=== PATIENT | male | born 1960 | race Caucasian/White ===

== ENCOUNTER 2018-02-05 15:34 | Emergency (ER) | payer OTHER ==
[~2018-02-05] VITALS: Ht 167.6 cm; Wt 68.0 kg
--- NOTE | 2018-02-05 18:57 | ED GENERAL ADULT ---
See Addendum History of Present Illness General Chief Complaint: ETOH/Drug Related Complaint Stated Complaint: PT WAS SIB BY [facility] FOR ALCOHOL DETOX Source: patient, family, friend Exam Limitations: no limitations Vital Signs & Intake/Output Vital Signs & Intake/Output Vital Signs Date Time Temp Pulse Resp B/P B/P Pulse O2 O2 Flow FiO2 Mean Ox Delivery Rate 02/05 1855 98.3 100 18 122/73 94 Room Air 02/05 1752 98.9 105 18 149/96 97 Room Air 02/05 1618 Room Air 02/05 1543 95.9 111 15 109/78 96 Room Air Room Air Allergies Coded Allergies: No Known Allergies (02/05/18) Triage Note: PT TO ED FOR ETOH DETOX AND HIGH WATCH CLEARANCE. PT REPORTS HE NORMALLY DRINKS APPROX 2-3 PINTS OF VODKA A DAY. LAST DRINK WAS AROUND 1000 THIS MORNING. HAS DETOXED BEFORE AT [facility] AND HAD A SEIZURE (MANY YEARS AGO). DENIES DRUG USE/SI/HI. UNABLE TO SIT DOWN IN TRIAGE DUE TO CHRONIC LOWER BACK PAIN. Triage Nurses Notes Reviewed? yes HPI: Patient is a 57-year-old male with a long past medical history of alcoholism who presents today requesting detox at [facility]. He reportedly drinks 1-2 L of vodka per day, and did drink earlier today. Upon my initial encounter he is not significantly clinically intoxicated. Currently he is expressing no significant withdrawal symptoms. Past History Travel History Traveled to [place] past 21 day No Medical History Any Pertinent Medical History? see below for history Neurological: DETOX SEIZURE X 1. EENT: NONE Cardiovascular: NONE Respiratory: NONE Gastrointestinal: NONE Hepatic: NONE Renal: NONE Musculoskeletal: CHRONIC BACK PAIN Psychiatric: ETOH Endocrine: NONE Blood Disorders: NONE Cancer(s): NONE Surgical History Surgical History: non-contributory Psychosocial History What is your primary language Turkish Tobacco Use: Current Daily Use Daily Tobacco Use Amount/Type: => 5 Cigarettes daily ETOH Use: alcoholic Illicit Drug Use: denies illicit drug use Family History Hx Contributory? No Review of Systems Review of Systems Constitutional: Reports: see HPI. EENTM: Reports: no symptoms. Respiratory: Reports: no symptoms. Cardiovascular: Reports: no symptoms. GI: Reports: no symptoms. Genitourinary: Reports: no symptoms. Musculoskeletal: Reports: no symptoms. Skin: Reports: no symptoms. Neurological/Psychological: Reports: see HPI, emotional problems. Hematologic/Endocrine: Reports: no symptoms. Immunologic/Allergic: Reports: no symptoms. All Other Systems: Reviewed and Negative Physical Exam Physical Exam General Appearance: no apparent distress, alert, awake, comfortable Comments: HEENT: Inspection of the head reveals a normocephalic cranium with no signs of trauma. Ophtho: Extraocular muscles are intact. The sclera are noninjected, and there is no obvious discharge. Neck: No signs of trauma or asymmetry to the neck. Respiratory: The patient exhibits no signs of labored breathing. Cardiac: Non-tachycardic. GI: No gross abdominal distention. : Deferred Neuro: Non-tremulous. The patient is oriented to person, place, time, and situation, with no obvious focal motor deficits. Cranial nerves II through XII are intact, and gait is normal. Behavioral: Calm and cooperative. Motivated for detox, denies suicidality or other psychiatric concerns at present. Dermatologic: Dermatologic examination reveals no obvious rashes or exanthems. Core Measures ACS in differential dx? No CVA/TIA Diagnosis: No Sepsis Present: No Sepsis Focused Exam Completed? No Progress Differential Diagnoses I considered the following diagnoses in my evaluation of the patient: Alcoholism , polysubstance abuse, alcohol withdrawal Plan of Care: Orders Procedure Date/time Status Regular Diet 02/06 B Active CIWA 02/05 1710 Active MAGNESIUM 02/05 1710 Active ETHANOL 02/05 1701 Active COMPREHENSIVE METABOLIC PANEL 02/05 1701 Active CBC WITHOUT DIFFERENTIAL 02/05 170 Active Current Medications Sig/Asa Start time Last Medication Dose Stop Time Status Admin Clonidine 0.1 MG FOUR TIMES A DAY 02/05 1800 UNVr (Catapres) Hydroxyzine HCl 25 MG AT BEDTIME NEED.. 02/05 1715 UNVr (Atarax) Gabapentin 300 MG Q8 02/05 1708 UNVr (Neurontin) Initial ED EKG: none Hand-Off Endorsed To: Bogdan Olson MD Comments: Laboratory studies pending. Patient to undergo CIWA protocol overnight and hopeful floor high watch transfer tomorrow. Care transitioned to Dr. Olson overnight. Departure Departure Time of Disposition: 1855 Disposition: STILL A PATIENT Condition: Stable Clinical Impression Primary Impression: Alcohol dependence Qualifiers: Substance use status: with intoxication Complication of substance- induced condition: uncomplicated Qualified Code: F10.220 - Alcohol dependence with intoxication, uncomplicated Referrals: Patient Has No Primary Care Dr (PCP/Family) Departure Forms: Customer Survey General Discharge Information Critical Care Note Critical Care Note Critical Care Time: non-applicable
[2018-02-05 19:17] LABS: ABSOLUTE BASOPHIL COUNT 0 /CUMM (0.0-0.2); ABSOLUTE EOSINOPHIL COUNT 0 /CUMM (0.0-0.7); ABSOLUTE GRANULOCYTE CT 3.8 /CUMM (1.4-6.5); ABSOLUTE LYMPH COUNT 1.1 /CUMM (1.2-3.4); ABSOLUTE MONOCYTE COUNT 0.8 /CUMM (0.10-0.60); BASOPHIL % 0.4 % (0.0-2.0); EOSINOPHIL % 0.5 % (0-5); GRANULOCYTE % 66.1 % (42.2-75.2); MEAN CORPUSCULAR HGB 35.1 PG (27.0-31.0); MEAN CORPUSCULAR HGB CONC 34.1 G/DL (33.0-37.0); MEAN CORPUSCULAR VOLUME 102.8 FL (80.0-94.0); MEAN PLATELET VOLUME 7.5 FL (7.4-10.4); PLATELET COUNT 184 /CUMM (130-400); WHITE BLOOD CELL COUNT 5.8 /CUMM (4.8-10.8)
[2018-02-06 14:19] VITALS: BP 140/92
== END 2018-02-06 14:36 ==
LOC: ERH 15:34
PROVIDERS: Student in an Organized Health Care Education/Training Program
DX: F10.20 Alcohol dependence, uncomplicated (principal)
CPT/HCPCS: 80307; G0480

== ENCOUNTER 2018-02-06 19:36 | Inpatient (IN) | payer OTHER ==
[~2018-02-06] VITALS: Ht 167.6 cm; Wt 73.5 kg
--- NOTE | 2018-02-06 21:21 | ED GENERAL ADULT ---
History of Present Illness General Chief Complaint: Fall Stated Complaint: SIB BY HIGHWATCH FOR FALL Source: patient, family, old records Exam Limitations: no limitations Vital Signs & Intake/Output Vital Signs & Intake/Output Vital Signs Date Time Temp Pulse Resp B/P B/P Pulse O2 O2 Flow FiO2 Mean Ox Delivery Rate 02/07 0215 98.7 102 18 132/80 96 Room Air 02/07 0200 98.7 102 18 132/80 02/07 0028 98.9 96 18 122/77 / 0019 98.9 96 18 122/77 98 / 2205 99.0 103 18 121/77 / 2205 99.0 103 18 121/77 97 06/07 2030 Room Air 02/06 1950 97.0 101 139/84 ED Intake and Output 02/07 0000 02/06 1200 Intake Total 0 Output Total 0 Balance 0 Intake, Oral 0 Output, Urine 0 Patient 155 lb Weight Allergies Coded Allergies: No Known Allergies (02/05/18) Reconcile Medications No Known Home Medications Triage Note: PER PT HERE FOR 2 DAYS THEN THIS AM SENT TO [facility] REPORTS OFF BALANCE UNABLE TO WALK SO SENT BACK TO ED Triage Nurses Notes Reviewed? yes Onset: Just prior to arrival Duration: hour(s):, constant, continues in ED, getting worse Timing: recent history Injury Environment: [facility] Severity: severe Modifying Factors: Improves With: rest. Worsens With: movement. HPI: The patient was sent to [facility] for alcohol detox. He was found to have unsteady gait and confusion when he arrived. He fell but does not recall any injury loss of consciousness. He denies fever chills nausea vomiting diarrhea abdominal pain chest pain shortness breath headache dysuria rash bleeding. Past History Travel History Traveled to [place] past 21 day No Medical History Any Pertinent Medical History? see below for history Neurological: DETOX SEIZURE X 1. EENT: NONE Cardiovascular: NONE Respiratory: NONE Gastrointestinal: NONE Hepatic: NONE Renal: NONE Musculoskeletal: CHRONIC BACK PAIN Psychiatric: ETOH Endocrine: NONE Blood Disorders: NONE Cancer(s): NONE Surgical History Surgical History: non-contributory Psychosocial History What is your primary language Slovak Tobacco Use: Current Daily Use Daily Tobacco Use Amount/Type: => 5 Cigarettes daily ETOH Use: heavy use Family History Hx Contributory? No Review of Systems Review of Systems Constitutional: Reports: no symptoms. EENTM: Reports: no symptoms. Respiratory: Reports: no symptoms. Cardiovascular: Reports: no symptoms. GI: Reports: no symptoms. Genitourinary: Reports: no symptoms. Musculoskeletal: Reports: no symptoms. Skin: Reports: no symptoms. Neurological/Psychological: Reports: see HPI, cognitive dysfunction, confusion, weakness, other (Ataxic gait ). Hematologic/Endocrine: Reports: no symptoms. Immunologic/Allergic: Reports: no symptoms. All Other Systems: Reviewed and Negative Physical Exam Physical Exam General Appearance: well developed/nourished, alert, awake, anxious, moderate distress Head: atraumatic, normal appearance Eyes: Bilateral: normal appearance, PERRL, EOMI. Ears, Nose, Throat: normal pharynx, normal ENT inspection, hearing grossly normal Neck: normal inspection, supple, full range of motion, no midline tenderness Respiratory: normal breath sounds, chest non-tender, no respiratory distress, quiet respiration, lungs clear Cardiovascular: regular rate/rhythm, normal peripheral pulses, norml femoral pulses equa Peripheral Pulses: 4+ carotid (R), 4+ carotid (L) Gastrointestinal: normal bowel sounds, soft, non-tender Back: normal inspection, normal range of motion, no vertebral tenderness Extremities: normal inspection, normal capillary refill, normal range of motion, no edema Neurologic/Psych: no motor/sensory deficits, awake, alert, oriented x 3, normal mood/affect, 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 Skin: intact, normal color, warm/dry Lymphatic: no anterior cervical jamaal Core Measures ACS in differential dx? No CVA/TIA Diagnosis: No Sepsis Present: No Sepsis Focused Exam Completed? No Progress Differential Diagnoses I considered the following diagnoses in my evaluation of the patient: Alcohol withdrawal alcohol intoxication and adverse medication reaction electrolyte abnormality Plan of Care: Orders Procedure Date/time Status Regular Diet 02/07 B Active Seizure Precautions 02/07 313 Active Weight 02/08 224 Complete Vital Signs 02/08 224 Active Teach/Educate 02/08 224 Active Pain Treatment and Response 02/08 224 Active Nutritional Intake, Monitor 02/08 224 Active Isolation 02/08 224 Active Intake & Output 02/08 224 Active Patient Care Conference 02/08 224 Active Activity/Ambulation 02/08 224 Active Pathway - chart 06/08 0214 Active House Staff 02/07 0214 Active Code Status 02/07 0214 Active Add-on Test (ER Only) 02/07 0058 Active Patient Data 02/07 0042 Active Lab Add-on Test 02/07 UNK Active VTE Mechanical Prophylaxis 02/07 UNK Active Precautions 02/07 UNK Active TSH REFLEX 02/06 2200 Complete TOTAL TRIODOTHYROXINE 02/06 2200 Complete PHOSPHORUS 02/06 2200 Complete MAGNESIUM 02/06 2200 Complete FREE T4 02/06 2200 Complete FOLIC ACID 02/06 2200 Complete VITAMIN B12 02/06 2200 Complete OXYGEN SETUP (GEN) 02/07 2120 Active Saline Lock 02/07 2120 Active Admit to inpatient 02/07 2120 Active Vital Signs 02/07 2120 Active Activity/Ambulation 02/07 2120 Active Code Status 02/07 2120 Complete CIWA 02/06 2111 Active URINALYSIS 02/06 2111 Complete AMMONIA 02/06 2111 Complete ETHANOL 02/06 2109 Complete COMPREHENSIVE METABOLIC PANEL 02/06 2109 Complete CBC WITHOUT DIFFERENTIAL 02/06 2109 Complete EKG 02/06 2109 Active Intake & Output 02/06 2029 Active Current Medications Sig/Asa Start time Last Medication Dose Stop Time Status Admin Thiamine HCl 50 MG DAILY 02/14 09 UNVr (Vitamin B1) Thiamine HCl 250 MG DAILY 02/09 09 UNVr (Vitamin B-1) 02/13 1001 Sodium Chloride 50 ML (Normal Saline 50ML Bag) Heparin Sodium 5,000 UNIT Q8 02/07 0600 AC (Porcine) Lorazepam 2 MG Q6 02/07 06 AC (Ativan) Thiamine HCl 500 MG TID 02/07 0349 UNVr (Vitamin B-1) 02/08 1504 Sodium Chloride 50 ML (Normal Saline 50ML Bag) Folic Acid 1 MG DAILY 02/07 0230 AC (Folic Acid) Multivitamins 1 TAB DAILY 02/07 0230 AC (Theragran Vitamins) Lorazepam 0 Q1P PRN 02/07 0215 AC (Ativan) Cyanocobalamin/ 1 BAG ONCE ONE 02/06 2130 AC 02/06 Thiamine/Pyridoxine 02/07 0529 2326 (Vitamin in I.V.) Dextrose/Water 1,000 ML (D5W 1000) Lorazepam 1 MG Q2 PRN 02/06 2130 AC (Ativan) Lorazepam 2 MG Q2P PRN 02/06 2130 AC (Ativan) Laboratory Tests 02/07/18 0127: Urinalysis LIGHT H, Urine Color YEL, Urine Clarity CLEAR, Urine pH 7.5, Ur Specific [place] 1.010, Urine Protein NEG, Urine Ketones 15 H, Urine Nitrite NEG, Urine Bilirubin NEG, Urine Urobilinogen 1.0, Ur Leukocyte Esterase TRACE H , Ur Microscopic SEDIMENT EXAMINED, Urine RBC 1-3, Urine Crystals RARE UR AC, Urine Hemoglobin TRACE-INTACT H, Urine Glucose NEG 02/06/182199: Ammonia < 9 L 02/06/182199: Anion Gap 10, Estimated GFR > 60, BUN/Creatinine Ratio 18.3, Glucose 98, Calcium 9.5, Phosphorus 3.8, Magnesium 1.9, Total Bilirubin 1.2, AST 121 H, ALT 117 H, Alkaline Phosphatase 82, Total Protein 7.0, Albumin 4.2, Globulin 2.8, Albumin/ Globulin Ratio 1.5, Vitamin B12 718, Folate 5.8, Free T4 0.71, Total T3 1.29, TSH &T3 &Free T4 Intrp 4.580 H, CBC w Diff NO MAN DIFF REQ, RBC 3.38 L, MCV 102.0 H, MCH 35.4 H, MCHC 34.8, RDW 14.7 H, MPV 7.4, Gran % 68.3, Lymphocytes % 15.4 L, Monocytes % 14.2 H, Eosinophils % 1.7, Basophils % 0.4, Absolute Granulocytes 4.6, Absolute Lymphocytes 1.0 L, Absolute Monocytes 1.0 H, Absolute Eosinophils 0.1, Absolute Basophils 0, Serum Alcohol < 10.0 Diagnostic Imaging: Viewed by Me: CT Scan. Discussed w/RAD: CT Scan. Radiology Impression: No acute intracranial abnormality. Chronic small vessel ischemic disease of the periventricular white matter. No facial bone fracture. Initial ED EKG: normal axis, normal intervals, normal p-waves, normal QRS complex, normal sinus rhythm, no ST T wave changes Rhythm Strip: normal sinus rhythm Departure Departure Time of Disposition: 2119 Disposition: STILL A PATIENT Condition: Stable Clinical Impression Primary Impression: Alcohol withdrawal syndrome with perceptual disturbance Secondary Impressions: Ataxia Referrals: Patient Has No Primary Care Dr (PCP/Family) Departure Forms: Customer Survey General Discharge Information Prescriptions: Current Visit Scripts No Known Home Medications Alcohol Withdrawl Admission ED Alcohol Detox Admission d/t: Acute MedCond D/T Alcohol Critical Care Note Critical Care Note Critical Care Time: non-applicable
[2018-02-06 22:05] VITALS: BP 121/77
[2018-02-06 22:09] LABS: ABSOLUTE BASOPHIL COUNT 0 /CUMM (0.0-0.2); ABSOLUTE EOSINOPHIL COUNT 0.1 /CUMM (0.0-0.7); ABSOLUTE GRANULOCYTE CT 4.6 /CUMM (1.4-6.5); BASOPHIL % 0.4 % (0.0-2.0); EOSINOPHIL % 1.7 % (0-5); GRANULOCYTE % 68.3 % (42.2-75.2); HEMATOCRIT 34.4 % (42-52); MEAN CORPUSCULAR HGB 35.4 PG (27.0-31.0); MEAN CORPUSCULAR HGB CONC 34.8 G/DL (33.0-37.0); MEAN PLATELET VOLUME 7.4 FL (7.4-10.4); PLATELET COUNT 198 /CUMM (130-400); RBC DISTRIBUTION WIDTH 14.7 % (11.5-14.5); RED BLOOD CELL CT 3.38 /CUMM (4.70-6.10); WHITE BLOOD CELL COUNT 6.7 /CUMM (4.8-10.8)
--- NOTE | 2018-02-06 23:05 | CT SCAN REPORT ---
EXAMINATION: CT HEAD WITHOUT CONTRAST. CT FACIAL BONE WITHOUT CONTRAST. CLINICAL INFORMATION: Fall with facial trauma COMPARISON: None TECHNIQUE: A noncontrast CT of the head and a noncontrast CT of the facial bones is performed with sagittal and coronal reformats. DLP: [id number] FINDINGS: No intra-axial or extra-axial hemorrhage. No acute territorial infarct. There is a chronic lacunar infarct in the left basal ganglia external capsule. Chronic small vessel ischemic disease of the periventricular white matter with atrophy and mild prominence of the ventricles and sulci. Preservation of martel-white matter differentiation. No mass, mass effect, or midline shift. No fracture. The mastoid air cells and visualized paranasal sinuses are clear. There is no facial bone fracture. Globes and orbits appear normal. IMPRESSION: No acute intracranial abnormality. Chronic small vessel ischemic disease of the periventricular white matter. No facial bone fracture.
[2018-02-07] VITALS (9 sets, daily range): BP systolic 122–153; BP diastolic 77–99
--- NOTE | 2018-02-07 01:00 | History & Physical ---
Jl WILLETT,Waldo 02/07/18 0100: General Information and HPI MD Statement: I have seen and personally examined JUAN A CORONA and documented this H&P. The patient is a 57 year old M who presented with a patient stated chief complaint of [alcohol withdrawal]. Source of Information: patient, old records Exam Limitations: no limitations History of Present Illness: Patient is a 57-year-old male with a PMH significant for alcohol use disorder, alcohol withdrawal seizure and ICU admission, multiple attempts of detoxification and abstinence with relapses, who presents with ataxia and alcohol withdrawal from [facility]. Patient is going to be going to [facility] for alcohol detoxification however he had noted ataxia was brought to the ED. Patient drinks 2 pints of vodka per day since March 2017, prior to this reports being sober for 1-1/2 years. Patient's last drink was on 02/05/18. Patient reports a fall and loss of consciousness on 02/05/18 without head strike. Patient reports numerous falls over the past year while he was intoxicated but denies any gait instability when he is sober. Patient endorses mild anxiety and gait instability. Patient denies any weakness, numbness, tingling, chest pain, palpitations, lightheadedness, dizziness, suicidal ideation, homicidal ideation, audio or visual hallucinations. Allergies/Medications Allergies: Coded Allergies: No Known Allergies (02/05/18) Home Med list No Known Home Medications Past History Travel History Traveled to [place] past 21 day No Medical History Neurological: DETOX SEIZURE X 1. EENT: NONE Cardiovascular: NONE Respiratory: NONE Gastrointestinal: NONE Hepatic: NONE Renal: NONE Musculoskeletal: CHRONIC BACK PAIN Psychiatric: ETOH Endocrine: NONE Blood Disorders: NONE Cancer(s): NONE Surgical History Surgical History: non-contributory Past Family/Social History Family History Relations & Conditions if any FATHER FH: Parkinson's disease, Onset: 60+. MOTHER FH: alcohol abuse Psychosocial History Where do you live? Home Who Do You Live With? self Services at Home: None Primary Language: Italian Smoking Status: Current Everyday Smoker ETOH Use: heavy use Illicit Drug Use: denies illicit drug use Functional Ability ADLs Independent: dressing, eating, toileting, bathing. Ambulation: independent IADLs Independent: shopping, housework, finances, food prep, telephone, transportation , medication admin. Review of Systems Review of Systems Constitutional: Denies: chills, fever. Cardiovascular: Reports: see HPI, syncope. Denies: chest pain, palpitations. GI: Denies: abdominal pain, melena, nausea. Genitourinary: Denies: dysuria, frequency, hematuria. Musculoskeletal: Reports: no symptoms. Skin: Reports: no symptoms. Neurological/Psychological: Reports: ataxia. Exam & Diagnostic Data Last 24 Hrs of Vital Signs/I&O Vital Signs Date Time Temp Pulse Resp B/P B/P Pulse O2 O2 Flow FiO2 Mean Ox Delivery Rate 02/07 0028 98.9 96 18 122/77 02/07 0019 98.9 96 18 122/77 98 02/06 2205 99.0 103 18 121/77 02/06 2205 99.0 103 18 121/77 97 02/06 2030 Room Air 02/06 1950 97.0 101 139/84 Intake & Output 02/07 0800 02/07 0000 02/06 1600 Intake Total 0 Output Total 0 Balance 0 Intake, Oral 0 Output, Urine 0 Patient 155 lb Weight Physical Exam General Appearance Alert, Oriented X3, Cooperative, No Acute Distress Skin numerous ecchymoses on the back of different ages, abrasion on the L knee Skin Temp/Moisture Exam: Warm/Dry Cardiovascular Normal S1, Normal S2, tachycardic, HR 100s Lungs Clear to Auscultation, Normal Air Movement Abdomen Normal Bowel Sounds, Soft, No Tenderness, small umbilical hernia Neurological ataxic gait, tremulous, no clonus, saccadic dysmetria on eye exam ( eye over shoots when asked to track from lateral to midline and then corrects) ) Last 24 Hrs of Labs/Singh: Laboratory Tests 02/07/18 0127: Urine Color Pending, Urine Clarity Pending, Urine pH Pending, Ur Specific Al[place] Pending, Urine Protein Pending, Urine Ketones Pending, Urine Nitrite Pending, Urine Bilirubin Pending, Urine Urobilinogen Pending, Ur Leukocyte Esterase Pending, Ur Microscopic Pending, Urine Hemoglobin Pending, Urine Glucose Pending 02/06/18 2200: Ammonia < 9 L 02/06/182199: Anion Gap 10, Estimated GFR > 60, BUN/Creatinine Ratio 18.3, Glucose 98, Calcium 9.5, Phosphorus 3.8, Magnesium 1.9, Total Bilirubin 1.2, AST 121 H, ALT 117 H, Alkaline Phosphatase 82, Total Protein 7.0, Albumin 4.2, Globulin 2.8, Albumin/ Globulin Ratio 1.5, Free T4 0.71, Total T3 1.29, TSH &T3 &Free T4 Intrp 4.580 H , CBC w Diff NO MAN DIFF REQ, RBC 3.38 L, MCV 102.0 H, MCH 35.4 H, MCHC 34.8, RDW 14.7 H, MPV 7.4, Gran % 68.3, Lymphocytes % 15.4 L, Monocytes % 14.2 H, Eosinophils % 1.7, Basophils % 0.4, Absolute Granulocytes 4.6, Absolute Lymphocytes 1.0 L, Absolute Monocytes 1.0 H, Absolute Eosinophils 0.1, Absolute Basophils 0, Serum Alcohol < 10.0 Diagnostic Data CXR Results head CT/ Maxillofacial CT No intra-axial or extra-axial hemorrhage. No acute territorial infarct. There is a chronic lacunar infarct in the left basal ganglia external capsule. Chronic small vessel ischemic disease of the periventricular white matter with atrophy and mild prominence of the ventricles and sulci. Preservation of martel-white matter differentiation. No mass, mass effect, or midline shift. No fracture. The mastoid air cells and visualized paranasal sinuses are clear. There is no facial bone fracture. Globes and orbits appear normal. IMPRESSION: No acute intracranial abnormality. Chronic small vessel ischemic disease of the periventricular white matter. No facial bone fracture. Assessment/Plan Assessment: Patient is a 57-year-old male with a PMH significant for alcohol use disorder, alcohol withdrawal seizure and ICU admission, multiple attempts of detoxification and abstinence with relapses, who presents with ataxia and alcohol withdrawal from [facility]. Patient is going to be going to [facility] for alcohol detoxification however he had noted ataxia was brought to the ED. last drink was on 02/05/18. Vital signs on admission: T 97, P101, RR 18, BP 139/84, pulse ox 97% on room air Labs: WBC 6.7, H 12.0/34.4, platelets 198, MCV 102, sodium 137, potassium 3.9, chloride 95, CO2 32, BUN 11, creatinine 0.6, glucose 98, AST 121, ALT 117, ammonia <9, serum alcohol <10, UA shows hemoglobinuria Problem list #Alcohol withdrawal #Ataxia and saccadic dysmetria, differentials include alcohol withdrawal, Warneke's encephalopathy, cerebellar pathology #Macrocytic anemia #Transaminitis Plan -Admit to general medicine floor -IV Ativan per [facility] protocol, scheduled p.o. Ativan 2 mg every 6 hours -IV thiamine repletion -Banana bag 1, then oral multivitamin, folic acid -PT evaluation and treatment -Fall precautions -Patient refusing psych consult at this time -Social work consult -Monitor LFTs -Smoking cessation counseling -Consider neurologic consult if patient's ataxia does not improve with IV repletion and alcohol detoxification Diet: Regular diet DVT prophylaxis: Lovenox, Alps CODE STATUS: Full code As Ranked By This Provider Problem List: 1. Ataxia 2. Alcohol dependence 3. Alcohol withdrawal Core Measures/Misc (05/19) Acute Coronary Syndrome ACS Diagnosis: No Congestive Heart Failure Congestive Heart Failure Diagnosis No Cerebrovascular Accident CVA/TIA Diagnosis: No VTE (View Protocol) VTE Risk Factors Age>40 No Mechanical VTE Prophylaxis d/t N/A MechProphylax Ordered No VTE Pharm Prophylaxis d/t NA PharmProphylax ordered Sepsis (View protocol) Sepsis Present: No If YES complete Sepsis Event Note If YES complete Sepsis Event Note Donavan WILLETT, [facility] 02/07/18 0224: Core Measures/Misc (05/19) Sepsis (View protocol) If YES complete Sepsis Event Note If YES complete Sepsis Event Note Attending MD Review Statement Attending Statement Attending MD Statement: examined this patient, discuss w/resident/PA/ELECTROENCEPHALOGRAPHIC TECHNICIAN, agreed w/resident/PA/ELECTROENCEPHALOGRAPHIC TECHNICIAN, reviewed images, amended to note Attending Assessment/Plan: 57 yo M smoker with h/o alcohol abuse who was seen in the ER 2 days prior requesting alcohol detox and was discharged to [facility] this morning for further management. However, once he was at [facility], on initial evaluation he was noted to be tremulous with an unsteady gait, so he was sent back to ER. Patient has a h/o alcohol withdrawal seizure (2016) for which he was admitted to [facility] ICU. He has been through multiple detoxes including twice at [facility]). He drinks 1-2 pints of Vodka daily, last drink was 48 hours prior. He denies SI or HI. He has been having a gait imbalance for the past 2 years and most recently had has multiple falls. He denies chest pain, palpitations, dyspnea, nausea/ vomiting, hematemesis or abdominal pain. He occasionally takes pseudophed for allergies but denies any major medical problems. Vitals stable except for tachycardia. Exam: AAO x 3, saccadic eye movements noted, tremulous, gait unsteady, unable to assess Romberg's, power 5/5, sensation intact. Multiple bruises noted to the upper and lower back. Chest clear, Heart S1S2 regular, tachycardic, Abd soft, NT, LE: no edema. Labs: macrocytic anemia H/H 12/34.4, Plt 198, bicarb 32, AST 121, ALT 117, ammonia <9, UA negative. Alcohol <10. Utox (02/06): negative. EKG: sinus tachycardia, Qtc 483. CT head/ maxillofacial: no acute abnormality. Chronic small vessel ischemic disease of periventricular white matter. No facial bone fracture. Assessment and plan: 1. Alcohol withdrawal 2. Gait ataxia, saccadic eye movements (no nystagmus) without ongoing confusion 3. CT head s/o small vessel ischemic disease - subacute or old stroke is a possibility 4. History of withdrawal seizure 5. Macrocytic anemia 6. Transaminitis 2/2 alcohol use - Admit to General medicine - Neurochecks Q2 - CIWA protocol - IV ativan per CIWA - PO Ativan 2 mg Q6 - IV thiamine high dose for 7 days - PT eval - Low threshold for ICU transfer - Banana bag x1 - Trend LFTs - Check TSH, Free T4, B12 and folic acid - Social work consult/ Case management consult - Patient does not wish to see a psychiatrist at this point. He prefers to see the psychiatrist at [facility]. - Smoking cessation counseling, nicotine patch - Consider ?stroke work up ?MRI DVT ppx Lovenox. Full code. Oli WILLETT,Ismail 02/07/18 0402: Core Measures/Misc (05/19) Sepsis (View protocol) If YES complete Sepsis Event Note If YES complete Sepsis Event Note Resident Review Statement Resident Statement: examined this patient, discussed with rn intern, agreed with rn intern Other Findings: 57/M with PMHx significant for multiple hospital admission for alcohol detox with last one being 2 year ago that required ICU admission and was complicated by seizure, presented by his brother for alcohol detox. The patient was sober since last detox until one year ago when he started drinking again. He reports drinking 2 pints of vodka every day for the past year. His last drink was last Saturday morning. He had multiple falls for which his brother decided to bring him for alcohol detox. He was observed in the ED for [facility] 24 hour then he was sent to [facility]. There was a concern about imbalance with ambulation for which she was sent back to the ED. Currently he feels anxious and reports having tremors but denies any other active complaints. The patient has no other significant past medical history, he is not taking any medication at home. Physical Exam: HEENT: dry mouth, eye is showing saccadic dysmetria (overshooting and follow the finger) CVS: Nl S1/S2, without MRGs RESP: CTA without additional sounds GI: soft, ND/NT, + BS Neuro: A&Ox3, motor 5/5 x4, intact sensatino x4, CN intact 2-12, eye dysmetria, normal speech, mild abnormal nose to finger test, negative Romberg test. Back: multiple different ages bruises from falls Ext: No edema, hand tremor Labs were significant for transaminitis that's improved since Saturday, and microcytic anemia. Breast flaps were insignificant. Assessment: The patient had multiple admission for alcohol detox. Eye exam is showing dysmetria, back multiple bruises that seem to happen at different times becaue of falls (Ataxia?), and intermittent AMS. his symptoms possible just 2/2 alcohol withdrawal that possible complicated by Wernicke encephalopathy. He has no headache or focal neurological sign, however we will consider cerebellum pathologies if symptoms did not improve. Plan #Alcohol detox: * Admit to general med floor * Ativan as per CIWA * Scheduled to milligram of oral Ativan every 6 * Oral folic acid and multivitamin * IV thiamine * Fall precaution, PT eval #Saccadic dysmetria, imbalance gait(ataxia?), and one episode of confusion ( Wernicke encephalopathy) * Start with 500 mg IV thiamine 3 times a day for 2 days * Followed by 250mg IV thiamine for 5 days * Followed by oral 50 mg thiamine daily * If the patient did not improve, consider cerebellum pathologies. (MRA) #Transaminitis * Improved since Saturday, most likely alcohol related * Repeat LFTs prior to discharge -Regular diet -DVT PPx: ALPS and hep SC -FC
--- NOTE | 2018-02-07 02:25 | Admission Certification ---
Admission Certification Certification Statement - As attending physician, I certify that at the time of - admission, based on clinical presentation, severity of - symptoms, need for further diagnostic testing and - therapeutic interventions, and risk of adverse outcomes - without in-hospital treatment, in my clinical assessment, - this patient requires an acute hospital stay for a minimum - of two nights or longer. I have also considered psychsocial - factors such as support system, advanced age, financial - issues, cognitive issues, and failed out-patient treatments, - past re-admission history, safety of patient, and lack of - compliance as applicable. Specific rationale supporting this admission is: Alcohol withdrawal.
--- NOTE | 2018-02-07 10:40 | Event Note ---
See Addendum Event Note Event Note: S: seen and examined pt this morning, complains about being lighthead. O: appears tremulous, Saccadic eye movements noted, continues to be ataxic A/p: 57 yo M smoker with h/o alcohol abuse current admission for alcohol withdrawal, treated for the following issues: Alcohol withdrawal with h/o of withdrawal seizures continue CIWA protocol Gait ataxia, saccadic eye movements posterior cerebellar stroke VS Wernicke's encephalopathy MRI head pending Neurology consulted Macrocytic anemia likely secondary to alcohol use
--- NOTE | 2018-02-07 15:45 | MRI REPORT ---
MR BRAIN WITHOUT IV CONTRAST CLINICAL INFORMATION: Saccadic eye movements/ataxia COMPARISON: Head CT from yesterday. TECHNIQUE: MRI of the brain without contrast was obtained using routine sequences. FINDINGS: There is no hydrocephalus, extra-axial surface collection, or herniation. Mild T2 signal changes within the supratentorial white matter, likely mild chronic microangiopathy. There is global cerebral and cerebellar volume loss. Incidental perivascular space within the inferior left putamen. The major flow voids at the skull base are preserved. There is no acute infarct on diffusion-weighted imaging. There is no intracranial hemorrhage on the gradient recalled echo acquisition. The midline structures are normal. The cerebellar tonsils are normally positioned. The craniocervical junction is normal. Osseous marrow signal intensity is homogenous. The visualized soft tissues are unremarkable. IMPRESSION: No acute intracranial findings. No acute infarcts. Mild T2 signal changes within the supratentorial white matter, likely mild chronic microangiopathy. There is global cerebral and cerebellar volume loss.
--- NOTE | 2018-02-07 16:47 | Cons- Neurology ---
General Information and HPI Consulting Request Date of Consult: 02/07/18 Requested By: Enrico Man MD Reason for Consult: "dancing eyes" Source of Information: patient, old records Exam Limitations: poor historian History of Present Illness: 57/M chronic alcoholic and smoker admitted for alcohol detox prior to transfer to [facility] noted by housestaff to have abnormal eye movements. Patient admits last drink was 2 days ago. Denies blurry vision or oscillopsia. Not aware of any abnormal eye movements but last formal eye exam many years ago. wears over the counter cheaters for farsightedness. No eye pain. Allergies/Medications Allergies: Coded Allergies: No Known Allergies (02/05/18) Home Med List: No Known Home Medications Review of Systems Review of Systems: No specific BELT TURNER complaints, aware of tremor he says occurs with ETOH withdrawal. No headaches. Denies weight loss, cough, SOB, hemoptysis. Remaining elements of the complete medical ROS negative or noncontributory Past History Travel History Traveled to [place] past 21 day No Medical History Blood Transfusion Hx: No Neurological: DETOX SEIZURE X 1. EENT: NONE Cardiovascular: NONE Respiratory: NONE Gastrointestinal: NONE Hepatic: NONE Renal: NONE Musculoskeletal: CHRONIC BACK PAIN Psychiatric: ETOH Endocrine: NONE Blood Disorders: NONE Cancer(s): NONE [employer]/Reproductive: NONE Surgical History Surgical History: appendectomy, BOTH ANKLE SURGERY Family History Relations & Conditions If Any: FATHER FH: Parkinson's disease, Onset: 60+. MOTHER FH: alcohol abuse Psychosocial History Where Do You Live? Home Who Do You Live With? self Services at Home: None Primary Language: Macedonian Smoking Status: Current Everyday Smoker ETOH Use: heavy use Illicit Drug Use: denies illicit drug use Functional Ability ADLs Independent: dressing, eating, toileting, bathing. Ambulation: independent IADLs Independent: shopping, housework, finances, food prep, telephone, transportation , medication admin. Exam & Diagnostic Data Vital Signs and I&O Vital Signs Date Time Temp Pulse Resp B/P B/P Pulse O2 O2 Flow FiO2 Mean Ox Delivery Rate 02/07 1349 98.8 101 18 149/91 96 Room Air 02/07 0653 98.3 98 20 142/97 97 Room Air 02/07 0215 98.7 102 18 132/80 96 Room Air 02/07 0200 98.7 102 18 132/80 02/07 0028 98.9 96 18 122/77 02/07 0019 98.9 96 18 122/77 98 02/06 2205 99.0 103 18 121/77 02/06 2205 99.0 103 18 121/77 97 02/06 2030 Room Air 02/06 1950 97.0 101 139/84 Intake & Output 02/07 1600 02/07 0800 06 0000 Intake Total 1100 1050 0 Output Total 650 1200 0 Balance 450 -150 0 Intake, IV 500 570 Intake, Oral 600 480 0 Number 2 Bowel Movements Output, Urine 650 1200 0 Patient 162 lb 155 lb Weight Weight Bed scale Measurement Method Physical Exam: On exam the patient was lethargic, tremulous. no cardiac murmur. No peripheral edema Mental status: mildly lethargic, stays awake when interviewed, attentive, oriented, no language errors, mild dysarthria , recall impaired EYE MOVEMENTS: MULTIDIRECTIONAL CONJUGATE IRREGULAR EYE JERKING, QUICK = OPSOCLONUS Mild end gaze nystagmus all directions as well Funduscopic unremarkable Visual carlson full, pupils midsize equal round and reactive to light. Facial movement normal bilaterally Facial sensation normal bilaterally Hearing intact bilaterally Uvula elevates midline Tongue protrusion is midline Shoulder shrug symmetric Motor power and tone normal in all 4 extremities Sensation intact to primary modes Tendon reflexes normal and symmetric without pathologic signs Coordination ATAXIA ON NFN, HEEL-IBRAHIM Gait [testing deferred] Last 48 Hours of Lab Results: Laboratory Tests 02/07 02/06 0127 2200 Chemistry Ammonia (9 - 30 umol/L) < 9 L Toxicology Urine Opiates Screen (>2000 NG/ML) < 100 Methadone Screen (>300 NG/ML) < 40 Barbiturate Screen (>200 NG/ML) < 60 Ur Phencyclidine Scrn (>25 NG/ML) < 6.00 Amphetamines Screen (>1000 NG/ML) < 100 U Benzodiazepines Scrn (>200 NG/ML) < 85 Urine Cocaine Screen (>300 NG/ML) < 50 Urine Cannabis Screen (>50 NG/ML) < 5.00 Urines Urinalysis LIGHT H Urine Color (YEL,AMB,STR) YEL Urine Clarity (CLEAR) CLEAR Urine pH (5.0 - 8.0) 7.5 Ur Specific [place]man (1.001 - 1.035) 1.010 Urine Protein (NEG,<30 MG/DL) NEG Urine Ketones (NEG) 15 H Urine Nitrite (NEG) NEG Urine Bilirubin (NEG) NEG Urine Urobilinogen (0.1 - 1.0 EU/dl) 1.0 Ur Leukocyte Esterase (NEG) TRACE H Ur Microscopic SEDIMENT EXAMINED Urine RBC (0 - 5 /HPF) 1-3 Urine Crystals RARE UR AC Urine Hemoglobin (NEG) TRACE-INTACT H Urine Glucose (N MG/DL) NEG 02/06 2200 Chemistry Sodium (137 - 145 mmol/L) 137 Potassium (3.5 - 5.1 mmol/L) 3.9 Chloride (98 - 107 mmol/L) 95 L Carbon Dioxide (22 - 30 mmol/L) 32 H Anion Gap (5 - 16) 10 BUN (9 - 20 mg/dL) 11 Creatinine (0.7 - 1.2 mg/dL) 0.6 L Estimated GFR (>60 ml/min) > 60 BUN/Creatinine Ratio (7 - 25 %) 18.3 Glucose (65 - 99 mg/dL) 98 Calcium (8.4 - 10.2 mg/dL) 9.5 Phosphorus (2.5 - 4.5 mg/dL) 3.8 Magnesium (1.6 - 2.3 mg/dL) 1.9 Total Bilirubin (0.2 - 1.3 mg/dL) 1.2 AST (17 - 59 U/L) 121 H ALT (21 - 72 U/L) 117 H Alkaline Phosphatase (< 127 U/L) 82 Total Protein (6.3 - 8.2 g/dL) 7.0 Albumin (3.5 - 5.0 g/dL) 4.2 Globulin (1.9 - 4.2 gm/dL) 2.8 Albumin/Globulin Ratio (1.1 - 2.2 %) 1.5 Vitamin B12 (239 - 931 pg/mL) 718 Folate (2.76 - 20.0 ng/mL) 5.8 Free T4 (0.64 - 1.79 ng/dL) 0.71 Total T3 (0.97 - 1.69 ng/mL) 1.29 TSH &T3 &Free T4 Intrp (0.27 - 4.20 uIU/mL) 4.580 H Hematology CBC w Diff NO MAN DIFF REQ WBC (4.8 - 10.8 /CUMM) 6.7 RBC (4.70 - 6.10 /CUMM) 3.38 L Hgb (14.0 - 18.0 G/DL) 12.0 L Hct (42 - 52 %) 34.4 L MCV (80.0 - 94.0 FL) 102.0 H MCH (27.0 - 31.0 PG) 35.4 H MCHC (33.0 - 37.0 G/DL) 34.8 RDW (11.5 - 14.5 %) 14.7 H Plt Count (130 - 400 /CUMM) 198 MPV (7.4 - 10.4 FL) 7.4 Gran % (42.2 - 75.2 %) 68.3 Lymphocytes % (20.5 - 51.1 %) 15.4 L Monocytes % (1.7 - 9.3 %) 14.2 H Eosinophils % (0 - 5 %) 1.7 Basophils % (0.0 - 2.0 %) 0.4 Absolute Granulocytes (1.4 - 6.5 /CUMM) 4.6 Absolute Lymphocytes (1.2 - 3.4 /CUMM) 1.0 L Absolute Monocytes (0.10 - 0.60 /CUMM) 1.0 H Absolute Eosinophils (0.0 - 0.7 /CUMM) 0.1 Absolute Basophils (0.0 - 0.2 /CUMM) 0 Toxicology Serum Alcohol (<10 MG/DL) < 10.0 Imaging/Other Studies: MRI brain without contrast today: There is no hydrocephalus, extra-axial surface collection, or herniation. Mild T2 signal changes within the supratentorial white matter, likely mild chronic microangiopathy. There is global cerebral and cerebellar volume loss. Incidental perivascular space within the inferior left putamen. The major flow voids at the skull base are preserved. There is no acute infarct on diffusion-weighted imaging. There is no intracranial hemorrhage on the gradient recalled echo acquisition. The midline structures are normal. The cerebellar tonsils are normally positioned. The craniocervical junction is normal. Osseous marrow signal intensity is homogenous. The visualized soft tissues are unremarkable. IMPRESSION: No acute intracranial findings. No acute infarcts. Mild T2 signal changes within the supratentorial white matter, likely mild chronic microangiopathy. There is global cerebral and cerebellar volume loss. Assessment/Plan Assessment: Opsoclonus, ataxia in the setting of alcohol withdrawal Found case report of opsoclonus due to alcohol withdrawal but in adults is often a PARANEOPLASTIC SYNDROME from small cell lung cancer, occasionally renal or gastrointestinal malignancy. Other elements in the differential are viral encephalitis, ruled out based on his presentation and exam, cocaine which she denies using and some reports from Lyme disease Recommendations: Continue alcohol withdrawal protocol Either obtain scan of the lungs seeking evidence of small cell CA or observe clinically until through the withdrawal to determine if this finding disappears. This particular paraneoplastic syndrome is only rarely accompanied by autoimmune antibodies but if opsoclonus persists after recovery from withdrawal and with negative lung imaging then would send anti-hu and anti-amphiphysin antibodies. At that point would also research literature for additional potentially diagnostic antibodies, and treatment with ACTH, steroids or IVIG could be considered Consult Acknowledgment - Thank you for your consult request.
[2018-02-08 06:00] VITALS: BP 138/86
--- NOTE | 2018-02-08 08:31 | PN- Housestaff ---
Subjective Follow-up For: alcohol detox nystagmus Subjective: patient seen and examined. Reports feeling well. Review of Systems Constitutional: Reports: no symptoms. Objective Last 24 Hrs of Vital Signs/I&O Vital Signs Date Time Temp Pulse Resp B/P B/P Pulse O2 O2 Flow FiO2 Mean Ox Delivery Rate 02/08 600 98.6 83 20 138/86 02/08 0600 98.6 83 20 138/86 95 Room Air 02/07 2230 98.8 104 18 153/99 02/07 2134 98.8 104 18 153/99 95 /08 1930 110 08 1800 98.5 130 18 140/88 02/07 1800 98.5 130 18 140/88 95 Room Air 02/07 1600 98.8 101 18 149/91 02/07 1349 98.8 101 18 149/91 96 Room Air Intake & Output 02/08 1600 02/08 0800 02/08 0000 Intake Total 120 300 Output Total 700 600 Balance -580 -300 Intake, Oral 120 300 Output, Urine 700 600 Physical Exam General Appearance: Alert, Oriented X3, Cooperative, Mild Distress Skin: No Rashes, No Breakdown Skin Temp/Moisture Exam: Warm/Dry Sepsis Skin Exam (color): Normal for Ethnicity HEENT: Atraumatic Cardiovascular: Normal S1, Normal S2, No Murmurs Lungs: Clear to Auscultation, Normal Air Movement Abdomen: Soft, No Tenderness Neurological: Normal Speech, Sensation Intact, Cranial Nerves 3-12 NL, no obvious nystagmus noted Extremities: No Edema Assessment/Plan Assessment: 57-year-old male with a PMH significant for alcohol use disorder, alcohol withdrawal seizure and ICU admission, multiple attempts of detoxification and abstinence with relapses, who presented to ED with ataxia and alcohol withdrawal from high [employer]. Patient is going to be going to [facility] for alcohol detoxification however he had noted ataxia was brought to the ED. last drink was on 02/05/18. Assessment: #Alcohol withdrawal #Ataxia #Macrocytic anemia #Transaminitis Plan -Continue IV Ativan per [facility] protocol - decreased PO ativan to 1.5mg q6 -IV thiamine repletion for 5 doses and then PO -oral multivitamin, folic acid -PT evaluation and treatment -Fall precautions -Social work consult -Monitor LFTs -Neurology input appreciated. Will hold off on the CAT scan for now. The patient has slight ataxia but it could be in the setting of his alcohol withdrawal. If this does not resolve will obtain CT chest to assess for lung mass. Diet: Regular diet DVT prophylaxis: Lovenox, Alps CODE STATUS: Full code Problem List: 1. Alcohol withdrawal Pain Ratin Pain Location: none Pain Goal: Remain pain free Pain Plan: none Tomorrow's Labs & Rationales: BEP, Mg
--- NOTE | 2018-02-08 08:45 | PN- Att Addend ---
Attending Addendum Attending Brief Note Patient seen and examined. Plan of care discussed with the medical team and the patient. Available lab work and radiology test reports were reviewed. Patient awake and eating his breakfast this morning. He appears slightly tremulous. His peak CIWA score was 11. He is awake and currently oriented. 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 There is no respiratory distress. 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 oriented without any focal neuro deficit and follows commands appropriately; has bilateral hand tremors without any nystagmus Extremities: No edema; no clubbing or cyanosis noted Current Medications Sig/Asa Start time Last Medication Dose Route Stop Time Status Admin Enoxaparin Sodium 40 MG DAILY 02/07 900 02/07 SC 0758 Folic Acid 1 MG DAILY 02/07 0230 AC 02/07 PO 0756 Lorazepam 2 MG Q6 02/07 06 AC 02/08 PO 0550 Lorazepam 0 Q1P PRN 02/07 0215 AC 02/07 IV 2015 Lorazepam 1 MG Q2 PRN 02/06 2130 AC 02/08 IV 0313 Lorazepam 2 MG Q2P PRN 02/06 2130 AC IV Multivitamins 1 TAB DAILY 02/07 0230 02/07 PO 0756 Patient Medication 1 ED ONE ONE 02/07 0930 MD Teaching ED 02/07 0931 Thiamine HCl 50 MG DAILY 02/14 09 PO Thiamine HCl 250 MG DAILY 02/09 09 AC Sodium Chloride 100 ML IV 02/13 0959 Thiamine HCl 500 MG Q8H 02/07 1400 AC 02/08 Sodium Chloride 250 ML IV 02/08 2259 0624 Thiamine HCl 500 MG Q8H 02/07 06 DC 02/07 Sodium Chloride 50 ML IV 02/08 2304 0627 Laboratory Tests 02/08/18 0655: Anion Gap 12, Estimated GFR > 60, BUN/Creatinine Ratio 12.0, Triglycerides 73, Cholesterol 173, LDL Cholesterol, Calc 60 L, HDL Cholesterol 99 H, Cholesterol /HDL Ratio 2 02/07/18 0127: Urine Opiates Screen < 100, Methadone Screen < 40, Barbiturate Screen < 60, Ur Phencyclidine Scrn < 6.00, Amphetamines Screen < 100, U Benzodiazepines Scrn < 85, Urine Cocaine Screen < 50, Urine Cannabis Screen < 5.00, Urinalysis LIGHT H , Urine Color YEL, Urine Clarity CLEAR, Urine pH 7.5, Ur Specific [place] 1.010, Urine Protein NEG, Urine Ketones 15 H, Urine Nitrite NEG, Urine Bilirubin NEG, Urine Urobilinogen 1.0, Ur Leukocyte Esterase TRACE H, Ur Microscopic SEDIMENT EXAMINED, Urine RBC 1-3, Urine Crystals RARE UR AC, Urine Hemoglobin TRACE- INTACT H, Urine Glucose NEG 02/06/18 2200: Ammonia < 9 L 02/06/180: Anion Gap 10, Estimated GFR > 60, BUN/Creatinine Ratio 18.3, Glucose 98, Calcium 9.5, Phosphorus 3.8, Magnesium 1.9, Total Bilirubin 1.2, AST 121 H, ALT 117 H, Alkaline Phosphatase 82, Total Protein 7.0, Albumin 4.2, Globulin 2.8, Albumin/ Globulin Ratio 1.5, Vitamin B12 718, Folate 5.8, Free T4 0.71, Total T3 1.29, TSH &T3 &Free T4 Intrp 4.580 H, CBC w Diff NO MAN DIFF REQ, RBC 3.38 L, MCV 102.0 H, MCH 35.4 H, MCHC 34.8, RDW 14.7 H, MPV 7.4, Gran % 68.3, Lymphocytes % 15.4 L, Monocytes % 14.2 H, Eosinophils % 1.7, Basophils % 0.4, Absolute Granulocytes 4.6, Absolute Lymphocytes 1.0 L, Absolute Monocytes 1.0 H, Absolute Eosinophils 0.1, Absolute Basophils 0, Serum Alcohol < 10.0 Vital Signs Date Time Temp Pulse Resp B/P B/P Pulse O2 O2 Flow FiO2 Mean Ox Delivery Rate 02/08 600 98.6 83 20 138/86 02/08 600 98.6 83 20 138/86 95 Room Air 02/07 2230 98.8 104 18 153/99 02/07 2134 98.8 104 18 153/99 95 02/07 1930 110 02/07 1800 98.5 130 18 140/88 02/07 1800 98.5 130 18 140/88 95 Room Air 02/07 1600 98.8 101 18 149/91 02/07 1349 98.8 101 18 149/91 96 Room Air Intake & Output 02/08 1600 02/08 0800 02/08 0000 Intake Total 120 300 Output Total 700 600 Balance -580 -300 Intake, Oral 120 300 Output, Urine 700 600
[2018-02-08 15:01] VITALS: BP 122/90
[2018-02-08 21:50] VITALS: BP 146/80
[2018-02-09] VITALS (7 sets, daily range): BP systolic 117–142; BP diastolic 80–98
[2018-02-09 08:38] LABS: ABSOLUTE BASOPHIL COUNT 0.1 /CUMM (0.0-0.2); ABSOLUTE EOSINOPHIL COUNT 0.3 /CUMM (0.0-0.7); ABSOLUTE GRANULOCYTE CT 4.6 /CUMM (1.4-6.5); ABSOLUTE LYMPH COUNT 1.4 /CUMM (1.2-3.4); ABSOLUTE MONOCYTE COUNT 1.4 /CUMM (0.10-0.60); BASOPHIL % 0.9 % (0.0-2.0); EOSINOPHIL % 4.1 % (0-5); GRANULOCYTE % 59.3 % (42.2-75.2); MEAN CORPUSCULAR HGB 35.6 PG (27.0-31.0); MEAN CORPUSCULAR VOLUME 104.8 FL (80.0-94.0); MEAN PLATELET VOLUME 7.4 FL (7.4-10.4); PLATELET COUNT 270 /CUMM (130-400); RBC DISTRIBUTION WIDTH 14.3 % (11.5-14.5); RED BLOOD CELL CT 3.88 /CUMM (4.70-6.10); WHITE BLOOD CELL COUNT 7.8 /CUMM (4.8-10.8)
--- NOTE | 2018-02-09 08:48 | PN- Housestaff ---
Subjective Follow-up For: Alcohol detox Opsoclonus Subjective: Patient seen and examined. He is seen lying on his side in bed resting comfortably. He appears to be in no acute distress. He reports feeling well and has no new complaints and is eager to be discharged back to [facility]. Review of Systems Constitutional: Reports: see HPI. Objective Last 24 Hrs of Vital Signs/I&O Vital Signs Date Time Temp Pulse Resp B/P B/P Pulse O2 O2 Flow FiO2 Mean Ox Delivery Rate 02/09 615 98.7 96 20 142/98 95 02/08 2150 98.9 100 146/80 97 Room Air 02/08 1501 99.1 116 20 122/90 95 Room Air Intake & Output 02/09 1600 02/09 0800 02/09 0000 Intake Total 120 Output Total Balance 120 Intake, Oral 120 Physical Exam General Appearance: Alert, Oriented X3, Cooperative, No Acute Distress Other Physical Findings: General - well developed, well nourished middle-aged man in no acute distress HEENT - NCAT, PERRL, EOMI, anicteric sclera; dysmetric eye movements Neck- Supple, no JVD/HJR, no bruits, trachea midline, thyroid normal Cardio - S1, S2 w/o murmurs/gallops/rubs; regular rate and rhythm Resp - Clear to auscultation bilaterally GI - Soft, nontender, nondistended, bowel sounds present Neuro - Awake and alert, CN II - XII grossly intact Extremities - No edema, pulses intact Current Medications: Current Medications Sig/Asa Start time Last Medication Dose Route Stop Time Status Admin Enoxaparin Sodium 40 MG DAILY 02/07 900 AC 02/09 SC 10 Folic Acid 1 MG DAILY 02/07 023 AC 02/09 PO 909 Lorazepam 1 MG Q6 02/09 1200 AC PO Lorazepam 1.5 MG Q6 02/08 1200 DC 02/09 PO 0602 Lorazepam 0 Q1P PRN 02/07 0215 AC 02/07 IV 2014 Lorazepam 1 MG Q2 PRN 02/06 2130 AC 02/08 IV 0313 Lorazepam 2 MG Q2P PRN 02/06 213 AC IV Multivitamins 1 TAB DAILY 02/07 0230 AC 02/09 PO 909 Thiamine HCl 50 MG DAILY 02/14 900 AC PO Thiamine HCl 250 MG DAILY 02/09 900 AC 02/09 Sodium Chloride 100 ML IV 02/13 0959 0946 Thiamine HCl 500 MG Q8H 02/07 1400 DC 02/08 Sodium Chloride 250 ML IV 02/08 4980 1596 Last 24 Hrs of Lab/Singh Results Last 24 Hrs of Labs/Mics: Laboratory Tests 02/09/18 0746: Anion Gap 12, Estimated GFR > 60, BUN/Creatinine Ratio 11.7, Magnesium 2.1, CBC w Diff NO MAN DIFF REQ, RBC 3.88 L, MCV 104.8 H, MCH 35.6 H, MCHC 34.0, RDW 14.3, MPV 7.4, Gran % 59.3, Lymphocytes % 18.2 L, Monocytes % 17.5 H, Eosinophils % 4.1, Basophils % 0.9, Absolute Granulocytes 4.6, Absolute Lymphocytes 1.4, Absolute Monocytes 1.4 H, Absolute Eosinophils 0.3, Absolute Basophils 0.1 Assessment/Plan Assessment: 57 year old man with significant past history of EtOH abuse with withdrawal seizures requiring ICU admission seen for evaluation of unsteady gait and alcohol withdrawal sent in from [facility] found to have new abnormal eye movements and admitted for alcohol detox and neurology evaluation. Patient reports feeling well and has no new complaints. He continues to have an abnormal physical exam regarding his eye movements. Labs including CBC and serum chemistry are significant only for his known macrocytic anemia. He remains on high-dose intravenous thiamine in addition to folic acid and multivitamin. His CIWA scores remained 0-4 in the past 24 hours requiring no additional doses of Ativan. His Ativan is reduced to 1 mg every 6 hours. Patient safety monitor report remains in place for his impulsive behavior with fear of falling given his ataxia. Patient may require a CT chest to evaluate for small cell lung carcinoma as an etiology of his abnormal eye movements/ paraneoplastic syndrome. He may be discharged to [facility] possibly as early as tomorrow. 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 Alcohol withdrawal 2. Ataxia Pain Ratin Pain Location: None Pain Goal: Pain 4 or less Pain Plan: See assessment Tomorrow's Labs & Rationales: None
[2018-02-09 09:42] LABS: HEMATOCRIT 40.6 % (42-52)
--- NOTE | 2018-02-09 11:44 | PN- Att Addend ---
Attending Addendum Attending Brief Note Patient seen and examined. Plan of care discussed with the medical team and the patient. Available lab work and radiology test reports were reviewed. Patient awake and alert and denies new complaints today. As per nursing staff patient has been impulsive. He currently has a sitter. He appears slightly tremulous. His peak CIWA score was 4. He is awake and currently oriented. 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 There is no respiratory distress. 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: Awake alert oriented without any focal neuro deficit and follows commands appropriately; has bilateral hand tremors without any nystagmus Extremities: No edema; no clubbing or cyanosis noted Current Medications Sig/Asa Start time Last Medication Dose Route Stop Time Status Admin Enoxaparin Sodium 40 MG DAILY 02/07 900 AC 02/09 SC 0910 Folic Acid 1 MG DAILY 02/07 0230 AC 02/09 PO 09 Lorazepam 1 MG Q6 02/09 1200 AC PO Lorazepam 1.5 MG Q6 02/08 1200 DC 02/09 PO 0602 Lorazepam 0 Q1P PRN 02/07 0215 AC 02/07 IV 2015 Lorazepam 1 MG Q2 PRN 02/06 2130 AC 02/08 IV 0313 Lorazepam 2 MG Q2P PRN 02/06 2130 AC IV Multivitamins 1 TAB DAILY 02/07 0230 AC 02/09 PO 0910 Thiamine HCl 50 MG DAILY 02/14 0900 AC PO Thiamine HCl 250 MG DAILY 02/09 09 AC 02/09 Sodium Chloride 100 ML IV 02/13 0959 0946 Thiamine HCl 500 MG Q8H 02/07 1400 DC 02/08 Sodium Chloride 250 ML IV 02/08 2259 2222 Laboratory Tests 02/09 0746 Chemistry Sodium (137 - 145 mmol/L) 141 Potassium (3.5 - 5.1 mmol/L) 3.9 Chloride (98 - 107 mmol/L) 103 Carbon Dioxide (22 - 30 mmol/L) 26 Anion Gap (5 - 16) 12 BUN (9 - 20 mg/dL) 7 L Creatinine (0.7 - 1.2 mg/dL) 0.6 L Estimated GFR (>60 ml/min) > 60 BUN/Creatinine Ratio (7 - 25 %) 11.7 Magnesium (1.6 - 2.3 mg/dL) 2.1 Hematology CBC w Diff NO MAN DIFF REQ WBC (4.8 - 10.8 /CUMM) 7.8 RBC (4.70 - 6.10 /CUMM) 3.88 L Hgb (14.0 - 18.0 G/DL) 13.8 L Hct (42 - 52 %) 40.6 L MCV (80.0 - 94.0 FL) 104.8 H MCH (27.0 - 31.0 PG) 35.6 H MCHC (33.0 - 37.0 G/DL) 34.0 RDW (11.5 - 14.5 %) 14.3 Plt Count (130 - 400 /CUMM) 270 MPV (7.4 - 10.4 FL) 7.4 Gran % (42.2 - 75.2 %) 59.3 Lymphocytes % (20.5 - 51.1 %) 18.2 L Monocytes % (1.7 - 9.3 %) 17.5 H Eosinophils % (0 - 5 %) 4.1 Basophils % (0.0 - 2.0 %) 0.9 Absolute Granulocytes (1.4 - 6.5 /CUMM) 4.6 Absolute Lymphocytes (1.2 - 3.4 /CUMM) 1.4 Absolute Monocytes (0.10 - 0.60 /CUMM) 1.4 H Absolute Eosinophils (0.0 - 0.7 /CUMM) 0.3 Absolute Basophils (0.0 - 0.2 /CUMM) 0.1 Vital Signs Date Time Temp Pulse Resp B/P B/P Pulse O2 O2 Flow FiO2 Mean Ox Delivery Rate 02/09 0800 82 18 138/80 02/09 0615 98.7 96 20 142/98 95 02/08 2150 98.9 100 146/80 97 Room Air 02/08 1501 99.1 116 20 122/90 95 Room Air Intake & Output 02/09 1600 02/09 0800 06/10 0000 Intake Total 120 Output Total Balance 120 Intake, Oral 120
--- NOTE | 2018-02-09 15:16 | PN- Neurology ---
Subjective Subjective: Opsoclonus - improved on inspection patient feeling well Review of Systems: no complaints. Awaiting transfer to [facility] Objective Vital Signs and I&Os Vital Signs Date Time Temp Pulse Resp B/P B/P Pulse O2 O2 Flow FiO2 Mean Ox Delivery Rate 02/09 1430 120 138/88 02/09 1357 98.7 110 20 131/93 98 Room Air 02/09 0800 82 18 138/80 02/09 0615 98.7 96 20 142/98 95 02/08 2150 98.9 100 146/80 97 Room Air Intake & Output 02/09 1600 02/09 0800 02/09 0000 02/08 1600 02/08 0800 02/08 0000 Intake Total 720 120 720 120 300 Output Total 700 600 Balance 720 120 720 -580 -300 Intake, Oral 720 120 720 120 300 Number 1 Bowel Movements Output, Urine 700 600 Physical Exam: Alert, oriented Eye movements improved, still some quick conjugate jerking (opsoclonus), previous end-gaze nystagmus resolved ataxia improved gait not tested Current Medications: Current Medications Sig/Asa Start time Last Medication Dose Route Stop Time Status Admin Enoxaparin Sodium 40 MG DAILY 02/07 09 AC 02/09 SC 0910 Folic Acid 1 MG DAILY 02/07 0230 AC 02/09 PO 0910 Lorazepam 1 MG Q6 02/09 1200 AC 02/09 PO 1205 Lorazepam 1.5 MG Q6 02/08 1200 DC 02/09 PO 0602 Lorazepam 0 Q1P PRN 02/07 0215 AC 02/07 IV 2015 Lorazepam 1 MG Q2 PRN 02/06 2130 AC 02/08 IV 0313 Lorazepam 2 MG Q2P PRN 02/06 2130 AC IV Multivitamins 1 TAB DAILY 02/07 0230 AC 02/09 PO 0910 Thiamine HCl 50 MG DAILY 02/14 0900 AC PO Thiamine HCl 250 MG DAILY 02/09 0900 AC 02/09 Sodium Chloride 100 ML IV 02/13 0959 0946 Thiamine HCl 500 MG Q8H 02/07 1400 DC 02/08 Sodium Chloride 250 ML IV 02/08 2259 2222 Assessment/Plan Assessment: Opsoclonus, found case reports of occurrence in ETOH withdrawal, in adults often a paraneoplastic syndrome - primarily small cell lung cancer Plan: If leaves without pulmonary imaging be certain to assure follow up at [facility]. If abn eye movements persist should undergo further evaluation
[2018-02-10 06:18] VITALS: BP 136/94
--- NOTE | 2018-02-10 08:04 | PN- Housestaff ---
See Addendum Subjective Follow-up For: Alcohol detox Opsoclonus Subjective: Patient seen and examined. Offers no complaints. He feels much more steadier on his feet and would like to be discharged to [facility] tomorrow. Review of Systems Constitutional: Denies: see HPI. Objective Last 24 Hrs of Vital Signs/I&O Vital Signs Date Time Temp Pulse Resp B/P B/P Pulse O2 O2 Flow FiO2 Mean Ox Delivery Rate 02/10 0820 90 136/94 02/10 0618 98.6 90 20 136/94 96 02/09 2119 98.3 100 18 117/86 97 Room Air 02/09 2115 100 117/86 02/09 1611 115 138/90 02/09 1600 98.7 115 20 138/90 02/09 1523 115 138/90 02/09 1430 120 138/88 02/09 1357 98.7 110 20 131/93 98 Room Air Intake & Output 02/10 1600 02/10 0800 02/10 0000 Intake Total 480 300 Output Total Balance 480 300 Intake, Oral 480 300 Physical Exam General Appearance: Alert, Oriented X3, Cooperative, No Acute Distress Cardiovascular: Regular Rate, Normal S1, Normal S2 Lungs: Clear to Auscultation, Normal Air Movement Abdomen: Normal Bowel Sounds, Soft, No Tenderness Extremities: No Edema Current Medications: Current Medications Sig/Asa Start time Last Medication Dose Route Stop Time Status Admin Enoxaparin Sodium 40 MG DAILY 02/07 900 AC 02/10 SC 0820 Folic Acid 1 MG DAILY 02/07 0230 AC 02/10 PO 0820 Lorazepam 0.5 MG Q6 02/10 1200 AC PO 02/16 1159 Lorazepam 1 MG Q6 02/09 1200 DC 02/10 PO 0527 Lorazepam 0 Q1P PRN 02/07 0215 AC 02/07 IV 2015 Lorazepam 1 MG Q2 PRN 02/06 2130 AC 02/08 IV 0313 Lorazepam 2 MG Q2P PRN 02/06 2130 IV Metoprolol Tartrate 12.5 MG BID 02/09 1530 AC 02/10 PO 0820 Multivitamins 1 TAB DAILY 02/07 0230 AC 02/10 PO 0820 Thiamine HCl 50 MG DAILY 02/14 09 AC PO Thiamine HCl 250 MG DAILY 02/09 0900 AC 02/10 Sodium Chloride 100 ML IV 02/13 0959 0820 Assessment/Plan Assessment: 57 year old man with significant past history of EtOH abuse with withdrawal seizures requiring ICU admission seen for evaluation of unsteady gait and alcohol withdrawal sent in from [facility] found to have new abnormal eye movements and admitted for alcohol detox and neurology evaluation. Alcohol withdrawal with h/o of withdrawal seizures continue CIWA protocol, CIWA score 0,0,0 will taper ativan to 0.5q6 Gait ataxia/Opisoclonus Wernicke's encephalopathy, his opisclonus could be due to his withdrawal but could also secondary paraneoplastic syndrome MRI head showed no acute intracranial findings or acute infarcts was significant for global cerebral and cerebellar volume loss. He will need to be followed up by outpatient with regards for workup of possible underlying paraneoplasm Macrocytic anemia likely secondary to alcohol use -Regular Diet -DVT PPx with lovenox -FULL CODE Problem List: 1. Alcohol withdrawal syndrome with perceptual disturbance 2. Ataxia 3. Alcohol withdrawal 4. Alcohol dependence Pain Ratin Pain Location: na Pain Goal: Pain 4 or less Pain Plan: current regimen Tomorrow's Labs & Rationales: none required
[2018-02-10] MEDS ORDERED: ONE DAILY MULT1 EAC2 PO (11:05)
--- NOTE | 2018-02-10 11:08 | Patient Discharge Instructions ---
Discharge Instructions General Discharge Information You were seen/treated for: alcohol withdrawal Opisclonus Special Instructions: follow up with your new PCP will need to have work up for paraneoplastic syndrome as a possible reason for your opisclonus Acute Coronary Syndrome Inclusion Criteria At DC or during hospital stay patient has or had the following: ACS DIAGNOSIS No Discharge Core Measures Meds if any: Prescribed or Continued at Discharge Meds if any: NOT Prescribed or Continued at Discharge Congestive Heart Failure Inclusion Criteria At DC or during hospital stay patient has or had the following: CHF DIAGNOSIS No Discharge Core Measures Meds if any: Prescribed or Continued at Discharge Meds if any: NOT Prescribed or Continued at Discharge Cerebrovascular accident Inclusion Criteria At DC or during hospital stay patient has or had the following: CVA/TIA Diagnosis No Discharge Core Measures Meds if any: Prescribed or Continued at Discharge Meds if any: NOT Prescribed or Continued at Discharge Venous thromboembolism Inclusion Criteria VTE Diagnosis No VTE Type NONE VTE Confirmed by (Test) NONE Discharge Core Measures - Per Current guidelines, there needs to be overlap - treatment for the first 5 days of Warfarin therapy. - If discharged on Warfarin prior to 5 days of - overlap therapy, the patient will need to be - assessed for post discharge needs including - *Post discharge parental anticoagulation - *Warfarin and/or parental anticoagulation education - *Follow up date to check INR post discharge At least 5 days overlap therapy as Inpatient No Meds if any: Prescribed or Continued at Discharge Note: Overlap Therapy is Warfarin and Anticoagulant Meds if any: NOT Prescribed or Continued at Discharge
--- NOTE | 2018-02-10 11:18 | Discharge Summary ---
Visit Information Visit Dates Admission Date: 02/06/18 Discharge Date: 02/11/18 Hospital Course Course Attending Physician: Enrico Man MD Primary Care Physician: Patient Has No Primary Care Dr Hospital Course: 57 year old gentleman current smoker, with past medical history significant for multiple hospital admission for alcohol detox with last one being 2 years ago requiring ICU admission and was complicated by seizure. Reported being sober since last detox until one year ago when he started drinking again. He had been drinking 2 pints of vodka every day for the past year. He had multiple falls prior to this admission for which his brother decided to bring him for alcohol detox on 02/05 he was observed in the ED for 24 hour then he was sent to [facility]. There was a concern about imbalance with ambulation and he was sent back to [facility]. 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 Gait ataxia/Opisoclonus On admission he was noted to be ataxic with saccadic eye movements. His symptoms were thought to be secondary to Wernicke's encephalopathy including his opisclonus which improved remarkable during his hospitalizaiton. MRI head showed no acute intracranial findings or acute infarcts was significant for global cerebral and cerebellar volume loss. 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 He will need to be followed up by outpatient with regards for workup of possible underlying paraneoplasm. Hypertension/tachycardia His BP ranged in Systolic 140s with heart rate 100-110s. Started on metoprolol 12.5 twice daily. This will need to be reassessed in the outpatient setting. Macrocytic anemia likely secondary to alcohol use Transaminitis On admission he is AST/ALT were elevated the following day it trended down but still remained elevated at 121/117 respectively . This will need continued monitoring and work up as outpatient. -Regular Diet -DVT PPx with lovenox -FULL CODE Complications: none Allergies: Coded Allergies: No Known Allergies (02/05/18) Disposition Summary Disposition Principal Diagnosis: Alcohol withdrawal Additional Diagnosis: Opisclonus transaminitis macrocytic anemia Discharge Disposition: home or self care Discharge Instructions General Discharge Information Code Status: Full Code Patient's Diet: regular Patient's Activity: full activity Follow-Up Instructions/Appts: follow up with your new PCP will need to have work up for paraneoplastic syndrome as a possible reason for your opisclonus monitor transaminitis and workup as outpatient Medications at Discharge Discharge Medications: Start taking the following new medications: Metoprolol Tartrate (Metoprolol Tartrate) 25 MG TABLET 12.5 Milligram ORAL TWICE DAILY Days = 30 No Refills Instructions: take 1/2 tab twice day Comments: Last Taken:02/11/18 Time:08:50 Multivitamin (One Daily Multivitamin) 1 EACH TABLET 1 Tablet ORAL DAILY Days = 30 No Refills Comments: Last Taken:02/11/18 Time:8:51 AM Copies To: Lucinda WILLETT,Meliza Attending MD Review Statement Documenting Attending: Enrico Man MD Other Findings: The patient was seen and discussed with house staff. Agree with discharge plans and patient will be taken to [facility] today for further care (?30 day program).
[2018-02-10] MEDS ORDERED: METOPROLOL TART25 M1 PO (14:09)
[2018-02-10 14:21] VITALS: BP 132/86
--- NOTE | 2018-02-10 17:01 | RADIOLOGY REPORT ---
EXAMINATION: XR CHEST CLINICAL INFORMATION: Ataxia. 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 COMPARISON: None TECHNIQUE: 2 views of the chest were obtained. FINDINGS: Both lungs are symmetrically expanded, and appear clear. The cardiomediastinal silhouette is within normal limit. There is no pleural effusion present. Mild multilevel degenerative spondylosis is seen in the spine. IMPRESSION: No acute cardiopulmonary disease.
[2018-02-10 22:11] VITALS: BP 140/96
[2018-02-11 06:37] VITALS: BP 140/97
--- NOTE | 2018-02-11 07:34 | PN- Housestaff ---
Meliza Jane 02/11/18 0734: Subjective Follow-up For: Alcohol detox Opsoclonus Complaints: no complaints Subjective: Seen and examined patient. No overnight events reported states that he feels very well and is ready to go to [facility]. Reports no complaints Review of Systems Constitutional: Denies: see HPI. Objective Last 24 Hrs of Vital Signs/I&O Vital Signs Date Time Temp Pulse Resp B/P B/P Pulse O2 O2 Flow FiO2 Mean Ox Delivery Rate 02/11 0851 100 124/76 02/11 0800 100 18 124/76 02/11 0637 98.4 100 20 140/97 97 Room Air 02/10 2211 98.7 97 20 140/96 97 02/10 2152 100 140/92 02/10 1421 98.6 114 20 132/86 96 Room Air Intake & Output 02/11 1600 02/11 0800 02/11 0000 Intake Total 120 480 Output Total Balance 120 480 Intake, Oral 120 480 Physical Exam General Appearance: Alert, Oriented X3, Cooperative, No Acute Distress Cardiovascular: Regular Rate, Normal S1, Normal S2 Lungs: Clear to Auscultation, Normal Air Movement Abdomen: Normal Bowel Sounds, Soft Extremities: No Edema Assessment/Plan Assessment: 57 year old man with significant past history of EtOH abuse with withdrawal seizures requiring ICU admission seen for evaluation of unsteady gait and alcohol withdrawal sent in from [facility] found to have new abnormal eye movements and admitted for alcohol detox and neurology evaluation. Alcohol withdrawal with h/o of withdrawal seizures continue CIWA protocol, CIWA score 0,0,0 will receive 0.5 mg of Ativan prior to leaving today Gait ataxia/Opisoclonus Wernicke's encephalopathy, his opisclonus could be due to his withdrawal but could also secondary paraneoplastic syndrome MRI head showed no acute intracranial findings or acute infarcts was significant for global cerebral and cerebellar volume loss. He will need to be followed up by outpatient with regards for workup of possible underlying paraneoplasm Macrocytic anemia likely secondary to alcohol use Transaminitis will need to be monitored as outpatient for evaluation of liver pathology versus hepatitis serology -Regular Diet -DVT PPx with lovenox -FULL CODE -Stable for discharge to [facility] today Problem List: 1. Ataxia 2. Alcohol withdrawal Pain Ratin Pain Location: na Pain Goal: Pain 4 or less Pain Plan: Current regimen Tomorrow's Labs & Rationales: none required Enrico Man MD 02/11/18 1537: Attending MD Review Statement Attending Statement Attending MD Statement: examined this patient, discuss w/resident/PA/FURNACE COMBUSTION ANALYST, agreed w/resident/PA/FURNACE COMBUSTION ANALYST, reviewed EMR data (avail), discussed with nursing, discussed with case mgmt, amended to note Attending Assessment/Plan: The patient was seen and discussed with house staff. Agree with plan of care as outlined. OK to discharge to [facility] today.
[2018-02-11 08:00] VITALS: BP 124/76
[2018-02-11] MEDS ORDERED: METOPROLOL TART25 M1 PO (08:13)
[2018-02-11 08:51] VITALS: BP 124/76
== END 2018-02-11 11:00 | DRG 897 ==
LOC: ERH 19:36 → 2NB 21:20 → ERHI 21:20 → ENRESERV 02-07 00:54 → 2NB 02-07 02:04 → ERHI 02-07 02:04 → 2NB 02-07 02:04 → ENPENDDIS 02-11 09:19 → 2NB 02-11 11:00
PROVIDERS: Emergency Medicine; Internal Medicine
DX: F10.232 Alcohol dependence with withdrawal with perceptual disturbance (principal); E51.2 Wernicke's encephalopathy; W18.30XA Fall on same level, unspecified, initial encounter; M54.9 Dorsalgia, unspecified; Y90.0 Blood alcohol level of less than 20 mg/100 ml; R26.0 Ataxic gait; D53.9 Nutritional anemia, unspecified; R74.0 Nonspecific elevation of levels of transaminase and lactic acid dehydrogenase [LDH]; F17.200 Nicotine dependence, unspecified, uncomplicated; H55.89 Other irregular eye movements; K70.10 Alcoholic hepatitis without ascites
CPT/HCPCS: 2NBP; 70551; ERO; 36592; 71046; 80307; 81001; 82436; 93005; 93010; 97116-GO; 97161-GP; G0480; J1644; J1650; J3490; J7040; J7060